=== PATIENT | male | born 1975 | race Caucasian/White ===

== ENCOUNTER 2021-04-19 14:42 | Outpatient (CLI) | payer OTHER ==
--- NOTE | 2021-04-19 15:33 | SLEEP CARE CONSULTATION ---
Information from patient questionnaire entered by Judy Roberts. I have reviewed and concur with the information entered by Judy Roberts. This document represents the service I personally performed and the decisions made by me, Brittany Santillan ARNP. History of Present Illness Service Date and Time: 04/19/2021 1442 Reason for Visit: New patient, [facility] (last seen 2011) Chief Complaint: reports: Snoring Date of Onset: February 2021 Usual bedtime: 9:30 - 10 pm Time it takes to fall asleep: not sure Snores at night: Yes Observed to quit breathing while asleep: No Sleeps alone due to snoring: Yes Number of times waking at night: 0 Reasons for waking at night: reports: Other (acid reflux, rarely). denies: Choking, Snoring, Gasping for air Toss, Turn, or Twitch while sleeping: No Recalls having dreams: No Usually gets out of bed at: 4:50 am; weekends 0600 Feels refreshed in the morning: Yes Morning headache: No Sleepy or fatigued during the day: No Ever fallen asleep while driving: No Takes day naps: No Dreams during day naps: No Prior sleep studies: Yes (negative - 0.8) Year and Where: 2012 - [facility] Sleep Type of Sleep Study: Polysomnography Additional HPI information: I had the pleasure of seeing ALVARADO MONTAÑO today regarding the possibility of him having a sleep disorder. He had previous study in 2012. His current complaint is snoring loudly. He was sleeping in his recliner for a long time due to 's health issues. When he returned to lay in the bed to sleep since February, his snoring has gotten worse and is waking up his and others in the home can hear him as well. He has gained 5-10 pounds in the last few months. The patient thinks he is about 20 pounds heavier than at first sleep study in 2012. He states they did put him on a CPAP machine but he only used it for about 2 weeks. He could not tolerate the pressure because it was set so high it was blowing the mask off his face. The patient states he did not snore for a long time and he returns today to see if his apnea has gotten worse. 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 Patient is and lives in [place]. Have you smoked in the past 12 months: No Cigarettes per day (20/pack): 3 (1 pack weekly) Years of smokin Quit date: 1999 Smoking Pack Years: 0.6 Alcohol use: Yes Alcohol amount and frequency: 1-2 drink weekly Caffeine use: Yes Caffeine amount and frequency: daily, usually travel cup in morning and small cup in the evening Family History Family history of sleep disordered breathing: Yes Family Hx Sleep Apnea: Father: Snoring, Sleep apnea - Treated, Grandparent: Snoring, Sleep apnea - Treated Allergies and Home Medications Drug allergies reviewed: Yes (Percocet (side effect - aggressiveness)) Home medication list reviewed: Yes Allergy and home medication list: Flonase, adding tonight Loratidine Cetrizine Review of Systems Cardiovascular: denies: high blood pressure Gastrointestinal: denies: heartburn Neurological: denies: headaches Psychiatric: denies: anxiety, depression Ear/Nose/Throat: reports: nasal congestion. denies: tonsillectomy Endocrine: denies: thyroid disease Immunologic: reports: allergies to food or environment (pollen) Physical Exam Blood Pressure: 130/92 Cuff size: long Heart Rate: 92 O2 Saturation: 98 Height: 5 ft 8 in Weight: 211 lb 12.8 oz Body Mass Index: 32.2 BMI Classification: Obese Neck circumference: 17 (inches) Soft palate: long Hard palate: arched Uvula visualization: 25% Mallampati Class III Tongue: enlarged in size with teeth claire on lateral edges Tonsils: 1+ Neck: normal w/o lymphadenopathy or thyromegaly Heart: regular rate and rhythm Lungs: clear bilaterally Impression and Plan 1. Suspected Obstructive Sleep Apnea-Hypopnea Syndrome, as suggested by a history of loud and irregular snoring that has becomes worse in the recent months. I recommend proceeding to polysomnography to confirm the diagnosis and to assess severity. I reviewed with the patient what the sleep studies involve and after some discussion, obtained agreement to proceed. The pathophysiology of obstructive sleep apnea-hypopnea syndrome was discussed with the patient and health risks of cardiovascular and cerebrovascular disease if not treated. Risks of drowsy driving discussed in detail and patient advised to avoid long distance driving and to bleach boiler puller at the first sign of drowsiness. Patient agreed to plan. * Schedule polysomnography +- manual CPAP titration study and return in 1-2 weeks after the study to discuss result and initiate therapy. * Avoid long distance driving or driving when feeling sleepy. * Avoid alcohol, sedative and muscle relaxant around bedtime. * Attempt to lose weight. * Review instructions provided by trained office staff on how to prepare for the sleep study. * Return for follow-up after sleep study completed. Counseling Topics: Weight loss health impact Visit Type: In Office Time Spent with Patient (minutes): 30 Provider Statement: I spent 100% of the Face to Face Visit with the patient with greater than 50% spent counseling the patient and coordination of care.
[2021-04-19 15:34] VITALS: BP 130/92
== END 2021-04-19 14:43 | disposition home or self-care (01) ==
LOC: SC 14:42
PROVIDERS: ATTEND Nurse Practitioner Family
DX: R06.83 Snoring (principal); E66.9 Obesity, unspecified; Z68.32 Body mass index [BMI] 32.0-32.9, adult
CPT/HCPCS: 99203; 99212

== ENCOUNTER 2021-04-26 14:53 | Outpatient (CLI) | payer OTHER | END 2021-04-26 14:54 | disposition home or self-care (01) | LOC: SC 14:53 | PROVIDERS: ATTEND Nurse Practitioner Family | DX: G47.33 Obstructive sleep apnea (adult) (pediatric) (principal); E66.9 Obesity, unspecified; Z68.32 Body mass index [BMI] 32.0-32.9, adult | CPT/HCPCS: 95806 ==

== ENCOUNTER 2021-05-24 14:38 | Outpatient (CLI) | payer OTHER ==
--- NOTE | 2021-05-24 15:04 | SLEEP CARE CONSULTATION ---
Information from patient questionnaire entered by Judy Roberts. I have reviewed and concur with the information entered by Judy Roberts. This document represents the service I personally performed and the decisions made by , Brittany Santillan ARNP. History of Present Illness Service Date and Time: 05/24/2021 1438 Initial [place] Sleepiness Scale score: 5 (in 2012) Current [place] Sleepiness Scale score: 0 Additional HPI information: ALVARADO MONTAÑO returns for follow up and results of the recently performed HST. I explained the pathophysiology behind obstructive sleep apnea. We then spent quite a bit of time discussing different treatment options. For mild obstructive sleep apnea, surgery and oral appliance are alternatives to nasal CPAP therapy but in moderate or severe cases, nasal CPAP is the most effective and reliable treatment. Because apnea is primarily in supine position, then positional management therapy could be effective. Methods discussed such as positioning with pillows, using a T-shirt with tennis balls in the back, and shown commercial products that have a pillow format on back to prevent supine sleep. I reviewed the impact of weight changes on sleep apnea and strongly recommended losing weight. Patient was cautioned about risks of drowsy driving until sleepiness symptoms resolve. Sleep Study - Results Type of Sleep Study: Home sleep study Prior sleep studies: Yes Year and Where: 2011(PSG- negative 0.8) - [facility] Sleep Polysomnography/Home Sleep Study results: Physician Impression: The quality of the study is good. The length of the study is adequate (> 240 minutes). Please also see the tabulated and graphic data. 1. Obstructive Sleep Apnea-Hypopnea (ICD-10 G47.33), mild, with an AHI of 6.8/hr and marlena SaO2 of 87%. During the study, the patient had 29 apneas (29 obstructive, 0 central, 0 mixed) and 19 hypopneas. The longest episode lasted 51.0 seconds. The respiratory events occurred almost exclusively during supine sleep (supine AHI was 13.9 and non-supine, 1.04). 2. Hypoxemia (ICD-10 R09.02), mild, with the lowest oxygen saturation of 87 % and 0.2 minutes with SaO2 under 90%. Baseline oxygen saturation was normal (Average oxygen saturation was 93%). Allergies and Home Medications Home medication list reviewed: Yes (no new meds) Review of Systems Review of systems same as previous: Yes (no changes) Physical Exam Heart Rate: 87 O2 Saturation: 98 Height: 5 ft 8 in Weight: 215 lb (with steel toe boots on) Body Mass Index: 32.6 BMI Classification: Obese Impression and Plan 1. Obstructive Sleep Apnea-Hypopnea Syndrome, mild, with lowest oxygen saturation of 87%. Obviously this is the cause of the patients symptoms of unrefreshed sleep, and excessive daytime sleepiness. Positive pressure therapy could benefit his overall health and reduce risks of cardiovascular and cerebrovascular adverse events. Since patients apnea is primarily in supine position, patient advised to try positional therapy and agreed with plan. He is also advised to lose weight as this will reduce snoring and apnea. The patient chose to look into an oral appliance to treat their apnea. A 3 month follow up will be made to see if appliance has reduced symptoms. If so, another polysomnography will be ordered with use of the oral appliance to check efficacy in reducing apnea. Until patient is able to use the oral appliance, positional therapy is advised to avoid supine sleep with pillow positioning or one of the commercial products because apnea is more severe supine. * Oral mandibular appliance therapy * Positional therapy while checking into oral appliance * Attempt to lose weight. * Avoid alcohol consumption near bedtime. * Avoid supine sleep * The patient is again cautioned about driving until sleepiness completely resolves. * Return in about 3 months after using oral device one month. I will assess response to therapy and compliance at that time. Counseling Topics: Weight loss health impact Visit Type: In Office Time Spent with Patient (minutes): 21 Provider Statement: I spent 100% of the Face to Face Visit with the patient with greater than 50% spent counseling the patient and coordination of care.
== END 2021-05-24 14:39 | disposition home or self-care (01) ==
LOC: SC 14:38
PROVIDERS: ATTEND Nurse Practitioner Family
DX: G47.33 Obstructive sleep apnea (adult) (pediatric) (principal); E66.9 Obesity, unspecified; Z68.32 Body mass index [BMI] 32.0-32.9, adult
CPT/HCPCS: 99212; 99213

== ENCOUNTER 2022-03-06 15:09 | Outpatient (CLI) | payer OTHER | END 2022-03-06 15:10 | disposition home or self-care (01) | LOC: SC 15:09 | PROVIDERS: ATTEND Nurse Practitioner Family | DX: R09.02 Hypoxemia (principal); R06.83 Snoring; E66.9 Obesity, unspecified; Z68.32 Body mass index [BMI] 32.0-32.9, adult | CPT/HCPCS: 95806 ==

== ENCOUNTER 2022-03-26 16:21 | Outpatient (CLI) | payer OTHER ==
--- NOTE | 2022-03-26 16:52 | SLEEP CARE CONSULTATION ---
Information from patient questionnaire entered by Renetat Nuñez. I have reviewed and concur with the information entered by Renetta Nuñez. This document represents the service I personally performed and the decisions made by , Brittany Santillan ARNP. History of Present Illness Service Date and Time: 03/26/2022 1621 Initial [place] Sleepiness Scale score: 5 (in 2012) Current [place] Sleepiness Scale score: 2 Additional HPI information: ALVARADO MONTAÑO returns for follow up and results of the recently performed home sleep study. Patient was wearing his oral appliance the night of the study to check efficacy of his appliance. The patient was informed of the following findings: no significant sleep disordered breathing with an average AHI of 4.4 and marlena oxygen saturation of 88%. His supine AHI (5.1) was minimally elevated. Patient is getting good results with his oral appliance with his average less than 5. He will need to follow up with the dentist for a further adjustment. Patient counseled not drink alcohol less than 4 hours before bedtime as it can increase snoring and apnea. Patient was cautioned about risks of drowsy driving until sleepiness symptoms resolve. Patient denies drowsy driving. Sleep Study - Results Type of Sleep Study: Home sleep study (FOLLOW UP HST 03/06/2022) Prior sleep studies: Yes Year and Where: 2011(PSG- negative 0.8) - [facility] Sleep Polysomnography/Home Sleep Study results: Physician Impression: The quality of the study is good. The length of the study is adequate (> 240 minutes). Please also see the tabulated and graphic data. 1. No significant sleep disordered breathing, with an AHI of 4.4/hr and marlena SaO2 of 88%. During the study, the patient had 10 apneas (9 obstructive, 1 central, 0 mixed) and 23 hypopneas. The longest episode lasted 78.5 seconds. The few respiratory events occurred more frequently during supine sleep (supine AHI was 5.1 and non-supine, 3.35). 2. Hypoxemia (ICD-10 R09.02), minimal, with the lowest oxygen saturation of 88 % and 0.2 minutes with SaO2 under 90%. Baseline oxygen saturation was normal (Average oxygen saturation was 93%). Allergies and Home Medications Home medication list reviewed: Yes (no changes) Allergy and home medication list: Allergies acetaminophen [From Percocet] Allergy (Verified 02/17/15 18:57) Anxiety oxycodone HCl * [From Percocet] Allergy (Verified 02/17/15 18:57) Anxiety Review of Systems Review of systems same as previous: Yes (no changes) Physical Exam Vital signs obtained and entered by: Marcos NUÑEZ MA Blood Pressure: 144/90 (manal ) Heart Rate: 93 O2 Saturation: 98 Height: 5 ft 8 in Weight: 215 lb Body Mass Index: 32.6 BMI Classification: Obese Impression and Plan 1. Obstructive Sleep Apnea-Hypopnea Syndrome, mild with an AHI of 6.8. He returns for results of HST with oral appliance in place. Using oral appliance therapy, the patient had less apnea events during his sleep study. His supine AHI was minimally elevated at 5.1 and he was advised to follow up with his dentist for an adjustment of his device. I will then see him in 3 months for a follow up to see how he is doing. He does state that he is feeling more rested and having less daytime sleepiness with using the oral device. Patient's apnea severity and rationale for treatment to reduce apnea, improve sleep quality and reduce cardiovascular and cerebrovascular events was reviewed. 2. Obesity, unspecified. Currently patients BMI is 32,6. Obesity increases the risk of apnea, CPAP pressure requirements and overall health risks especially cardiovascular and diabetes. Thus patient is advised to lose weight. Weight loss can be done with reducing portion size, reducing refined foods and balancing content with vegetables, fruit and whole grain foods. In addition, patient encouraged to get regular exercise. -Continue oral appliance therapy -Attempt to lose weight -Call this office if any problems -Return for follow up in 3 months, or sooner if concerns arise Counseling Topics: Weight loss health impact Visit Type: In Office Time Spent with Patient (minutes): 10 Provider Statement: I spent 100% of the Face to Face Visit with the patient with greater than 50% spent counseling the patient and coordination of care.
[2022-03-26 16:53] VITALS: BP 144/90
== END 2022-03-26 16:22 | disposition home or self-care (01) ==
LOC: SC 16:21
PROVIDERS: ATTEND Nurse Practitioner Family
DX: G47.33 Obstructive sleep apnea (adult) (pediatric) (principal); E66.9 Obesity, unspecified; Z68.32 Body mass index [BMI] 32.0-32.9, adult
CPT/HCPCS: 99212

== ENCOUNTER 2022-06-25 16:00 | Outpatient (CLI) | payer OTHER ==
[2022-06-25 16:32] VITALS: BP 121/78
--- NOTE | 2022-06-25 16:32 | SLEEP CARE CONSULTATION ---
Information from patient questionnaire entered by Kirstie Vazquez MA. I have reviewed and concur with the information entered by Kirstie Vazquez MA. This document represents the service I personally performed and the decisions made by , Brittany Santillan ARNP. History of Present Illness Service Date and Time: 06/25/2022 1600 Previous diagnosis: Mild, Obstructive Sleep Apnea-Hypopnea Syndrome AHI: 6.8 (in 2020) Reason for follow up: three month (F/U ORAL APPLIANCE THERAPY, ) Equipment type: Dental Appliance Prior sleep studies: Yes Year and Where: 2011(PSG- negative 0.8) - [facility] Type of Sleep Study: Home sleep study HPI additional information: Tien Rod was diagnosed to have mild, AHI 6.8, obstructive sleep apnea- hypopnea syndrome and returned today for Oral appliance therapy three month follow-up. Sleep Study - Results Type of Sleep Study: Home sleep study Prior sleep studies: Yes Year and Where: 2011(PSG- negative 0.8) - [facility] CPAP Compliance Data Compliance data discussion: He states he remembers to wear his oral appliance. His will remind him if he forgets. He denies any issues with using his device. Subjective Observed to snore while using device: No On therapy, patient: reports: sleeping better, awakening more refreshed, being more awake and alert during the day, more rested overall. denies: drowsiness while driving Initial [place] Sleepiness Scale score: 5 (in 2011) Current [place] Sleepiness Scale score: 1 (06/25/2022) Allergies and Home Medications Known drug allergies: No Drug allergies reviewed: Yes Home medication list reviewed: Yes (see list) Allergy and home medication list: Allergies acetaminophen [From Percocet] Allergy (Verified 02/17/15 18:57) Anxiety oxycodone HCl * [From Percocet] Allergy (Verified 02/17/15 18:57) Anxiety Medications: Stopped Lisinopril Started on - Micardis/HCTZ 40mg \ 12.5mg qd. Review of Systems Review of systems same as previous: Yes (no changes) Physical Exam Vital signs obtained and entered by: SCOTTY QUIÑONES Blood Pressure: 121/78 (PULSE 70, RESP 18, RIGHT) Cuff size: wrist Heart Rate: 72 O2 Saturation: 98 (PAPER MASK) Height: 5 ft 8 in Weight: 216 lb (CLOTHES) Body Mass Index: 32.8 BMI Classification: Obese Impression and Plan 1. Obstructive Sleep Apnea-Hypopnea Syndrome, mild. Using oral appliance therapy, the patient has better sleep quality and is more rested overall. Patient states he is able to wear it every night and if he forgets his will remind him to put in his oral appliance. He has no muscle or teeth soreness wit h using his oral device. He did have it adjusted by his dentist.He is happy with current therapy and appears to be having good improvement of his sleep and restfulness overall. Patient's apnea severity and rationale for treatment to reduce apnea, improve sleep quality and reduce cardiovascular and cerebrovascular events was reviewed. 2. Obesity, unspecified. Currently patients BMI is 32.8. Obesity increases the risk of apnea, CPAP pressure requirements and overall health risks especially cardiovascular and diabetes. Thus patient is advised to lose weight. Weight loss can be done with reducing portion size, reducing refined foods and balancing content with vegetables, fruit and whole grain foods. In addition, patient encouraged to get regular exercise. -Continue oral appliance therapy -Attempt to lose weight -Call this office if any problems -Return for follow up in 1 year, or sooner if concerns arise Counseling Topics: Weight loss health impact Visit Type: In Office Time Spent with Patient (minutes): 11 Provider Statement: I spent 100% of the Face to Face Visit with the patient with greater than 50% spent counseling the patient and coordination of care.
== END 2022-06-25 16:01 | disposition home or self-care (01) ==
LOC: SC 16:00
PROVIDERS: ATTEND Nurse Practitioner Family
DX: G47.33 Obstructive sleep apnea (adult) (pediatric) (principal); E66.9 Obesity, unspecified; Z68.32 Body mass index [BMI] 32.0-32.9, adult
CPT/HCPCS: 99212

== ENCOUNTER 2022-10-29 16:54 | Emergency (ER) | payer OTHER ==
--- NOTE | 2022-10-29 18:17 | XRAY Report ---
PROCEDURE: Chest 1 View X-Ray INDICATIONS: Cough/SOA TECHNIQUE: One view of the chest was acquired. COMPARISON: None. FINDINGS: Surgical changes and devices: None. Lungs and pleura: No pleural effusions or pneumothorax. No consolidation identified. Mediastinum: Mediastinal contours appear normal. Heart size is normal. Bones and chest wall: No suspicious bony lesions. Overlying soft tissues appear unremarkable. IMPRESSION: No acute cardiopulmonary abnormality. Reviewed by: Reji Chaney MD on 10/29/2022 6:[address] [facility] Approved by: Reji Chaney MD on 10/29/2022 6:[address] Station ID: [id number]
[2022-10-29 18:20] LABS: B. PARAPERTUSSIS- RESP PCR PAN NOT DETECTED; B. PERTUSSIS- RESP PCR PANEL NOT DETECTED; C. PNEUMONIAE- RESP PCR PANEL NOT DETECTED; CORONAVIRUS 229E-RESP PCR NOT DETECTED; CORONAVIRUS HKU1-RESP PCR NOT DETECTED; CORONAVIRUS NL63-RESP PCR NOT DETECTED; CORONAVIRUS OC43-RESP PCR NOT DETECTED; HUMAN METAPNEUMOVIRUS NOT DETECTED; INFLUENZA A H3- RESP PCR PANEL DETECTED; INFLUENZA B - RESP PCR PANEL NOT DETECTED; M. PNEUMONIAE- RESP PCR PANEL NOT DETECTED; PARAINFLUENZA VIRUS 1 NOT DETECTED; PARAINFLUENZA VIRUS 2 NOT DETECTED; PARAINFLUENZA VIRUS 3 NOT DETECTED; PARAINFLUENZA VIRUS 4 NOT DETECTED; RHINOVIRUS/ENTEROVIRUS NOT DETECTED; RSV- RESP PCR PANEL NOT DETECTED; SARS-CoV-2 -RESP PCR PANEL NOT DETECTED
[2022-10-29] MEDS ORDERED: IPRATROPIUM/ALBUTEROL 3 ML NEB INH STA (19:46)
[2022-10-29] MEDS ORDERED: BENZONATATE 100 MG CAPSULE PO STA (19:50)
--- NOTE | 2022-10-29 19:51 | ED Physician Documentation ---
History of Present Illness - Stated complaint Stated Complaint: SOA/ACHES - Chief complaint Chief Complaint: Resp - History obtained from History obtained from: Patient - History of Present Illness Timing: How many days ago (2) Pain level max: 5 Pain level now: 3 - Additonal information Additional information: Patient is a 47-year-old male who presents to the emergency department with fever, congestion, body aches for the past 36 hours. Better with Motrin and Tylenol, he states that he has used inhalers in the past, and feels short of breath and like he is wheezing. The cough is mostly dry. No vomiting. No diarrhea. Review of Systems Constitutional: reports: Fever, Chills Nose: reports: Rhinorrhea / runny nose, Congestion Respiratory: reports: Cough, Wheezing GI: denies: Vomiting Skin: denies: Rash Musculoskeletal: denies: Neck pain, Back pain Neurologic: denies: Headache PD PAST MEDICAL HISTORY - Past Medical History Past Medical History: No - Past Surgical History Past Surgical History: No - Present Medications Home Medications: Ambulatory Orders Medication Instructions Recorded Confirmed Amoxicillin 500 mg PO TID #21 tablet 02/17/15 Fluticasone [Flonase] 2 sprays MODE DAILY #1 bottle 02/17/15 Albuterol Sulf [Ventolin Hfa 1 - 2 puffs INH Q4HR PRN #1 each 10/29/22 Inhaler] Baloxavir Marboxil [Xofluza] 80 mg PO ONCE #1 tablet 10/29/22 Benzonatate [Tessalon] 200 mg PO TID PRN #30 cap 10/29/22 - Allergies Allergies/Adverse Reactions: Allergies Allergy/AdvReac Type Severity Reaction Status Date / Time acetaminophen [From Percocet] Allergy Anxiety Verified 02/17/15 18:57 oxycodone HCl * Allergy Anxiety Verified 10/29/22 17:14 [From Percocet] - Social History Does the pt smoke?: No Smoking Status: Never smoker Does the pt drink ETOH?: Yes Does the pt have substance abuse?: No - Immunizations Immunizations are current?: No - POLST Patient has POLST: No PD ED PE NORMAL - Vitals Vital signs reviewed: Yes - General General: Alert and oriented X 3, No acute distress - HEENT HEENT: PERRL, Moist mucous membranes - Neck Neck: Supple, no meningeal sign - Cardiac Cardiac: RRR, No murmur - Respiratory Respiratory: No respiratory distress, Other (Mild wheeze bilaterally) - Abdomen Abdomen: Soft, Non tender, Non distended - Derm Derm: Warm and dry, No rash - Extremities Extremities: No edema - Neuro Neuro: Alert and oriented X 3 - Psych Psych: Normal mood, Normal affect Results - Vitals Vitals: Oxygen O2 Source Room air - Labs Labs: Laboratory Tests 10/29/22 17:15 Nasal Adenovirus (PCR) NOT DETECTED Nasal B. parapertussis DNA (PCR) NOT DETECTED Nasal Coronavir 229E PCR NOT DETECTED Nasal Coronavir HKU1 PCR NOT DETECTED Nasal Coronavir NL63 PCR NOT DETECTED Nasal Coronavir OC43 PCR NOT DETECTED Nasal Enterovir/Rhinovir PCR NOT DETECTED Nasal Influenza A H3 PCR DETECTED A Nasal Influenza B PCR NOT DETECTED Nasal Parainfluen 1 PCR NOT DETECTED Nasal Parainfluen 2 PCR NOT DETECTED Nasal Parainfluen 3 PCR NOT DETECTED Nasal Parainfluen 4 PCR NOT DETECTED Nasal RSV (PCR) NOT DETECTED Nasal B.pertussis DNA PCR NOT DETECTED Nasal C.pneumoniae (PCR) NOT DETECTED Mode Human Metapneumo PCR NOT DETECTED Nasal M.pneumoniae (PCR) NOT DETECTED Nasal SARS-CoV-2 (PCR) NOT DETECTED - Rads (name of study) cxr Radiology: Final report received, EMP read contemporaneously, See rad report PD MEDICAL DECISION MAKING - ED course Complexity details: reviewed results, re-evaluated patient, considered differential, d/w patient ED course: Patient is positive for influenza. He is well-appearing, nontoxic. No hypoxia. He received a DuoNeb treatment in the emergency department and feels like he is breathing easier. We will prescribe albuterol for home. We will also prescribe cough medication. As he has been sick less than 48 hours. We discussed antiviral therapy and we will place him on Xofluza as well. Patient counseled regarding signs and symptoms for which I believe and urgent re-evaluation would be necessary. Patient with good understanding of and agreement to plan and is comfortable going home at this time This document was made in part using voice recognition software. While efforts are made to proofread this document, sound alike and grammatical errors may occur. Departure - Departure Disposition: 01 Home, Self Care Clinical Impression: Influenza A Condition: Good Instructions: ED Flu Follow-Up: GABRIEL NIXON ARNP [Primary Care Provider] - Within 1 week Prescriptions: Albuterol Sulf [Ventolin Hfa Inhaler] 1 - 2 puffs INH Q4HR PRN #1 each PRN Reason: Shortness Of Air/Wheezing Benzonatate [Tessalon] 200 mg PO TID PRN #30 cap PRN Reason: Cough Baloxavir Marboxil [Xofluza] 80 mg PO ONCE #1 tablet Comments: You have tested positive for influenza A emiliano. Your prescriptions were sent to [facility] in [place]. Please follow-up with your doctor for further care. Return if you worsen. Your x-ray does not show any evidence of pneumonia today. Discharge Date/Time: 10/29/22 20:12
[2022-10-29 20:13] VITALS: BP 144/90
== END 2022-10-29 20:12 | disposition home or self-care (01) ==
LOC: ED 16:54
DX: J10.1 Influenza due to other identified influenza virus with other respiratory manifestations (principal); Z20.822 Contact with and (suspected) exposure to COVID-19
CPT/HCPCS: 71045; 87633; 94640; 94664; 99284; A9270

== ENCOUNTER 2023-07-09 14:41 | Outpatient (CLI) | payer OTHER ==
--- NOTE | 2023-07-09 15:23 | Sleep Patient Instructions ---
Sleep Center Visit Summary - Patient Visit Information Reason for Visit: Annual Visit for sleep apnea - Patient Instructions Additional Instructions: You were here for follow up of Oral appliance therapy. You will be continued on Oral Appliance therapy. You should follow up with sleep care in 12 months. You may contact us sooner for any questions or concerns. - Clinic Information Contact: [facility] [address] [place] [address] [email or web address] T: [phone]
--- NOTE | 2023-07-09 15:26 | SLEEP CARE CONSULTATION ---
Information from patient questionnaire entered by Lyndsay Villareal. I have reviewed and concur with the information entered by Lyndsay Villareal. This document represents the service I personally performed and the decisions made by , Brittany Santillan ARNP. History of Present Illness Service Date and Time: 07/09/2023 1441 Previous diagnosis: Mild, Obstructive Sleep Apnea-Hypopnea Syndrome AHI: 6.8 (in 2020) Reason for follow up: annual (LAST SEEN 06/2022 ORAL DEVICE F/U) Equipment type: Dental Appliance Prior sleep studies: Yes Year and Where: 2011(PSG- negative 0.8) - [facility] Type of Sleep Study: Home sleep study HPI additional information: ALVARADO MONTAÑO was diagnosed to have mild, AHI 6.8, obstructive sleep apnea- hypopnea syndrome and returned today for Oral appliance therapy annual follow- up. Sleep Study - Results Type of Sleep Study: Home sleep study Prior sleep studies: Yes Year and Where: 2011(PSG- negative 0.8) - [facility] CPAP Compliance Data Compliance data discussion: He is using his oral appliance every night. He denies any issues. Subjective On therapy, patient: reports: sleeping better, being more awake and alert during the day, more rested overall. denies: drowsiness while driving Initial [place] Sleepiness Scale score: 5 (in 2011) Current [place] Sleepiness Scale score: 1 (07/09/23) Allergies and Home Medications Known drug allergies: Yes (as listed) Drug allergies reviewed: Yes Home medication list reviewed: Yes (Aller Clear; Telmisartin-HCTZ) Allergy and home medication list: Allergies acetaminophen [From Percocet] Allergy (Verified 07/08/23 11:44) Anxiety oxycodone HCl * [From Percocet] Allergy (Verified 07/08/23 11:44) Anxiety Review of Systems Review of systems same as previous: Yes (no changes) Physical Exam Vital signs obtained and entered by: LYNDSAY Mchugh MA Blood Pressure: 134/86 (LEFT ARM) Cuff size: regular Heart Rate: 90 O2 Saturation: 99 Height: 5 ft 8 in Weight: 212 lb 12.8 oz Weight change since last visit: 4 lb loss Body Mass Index: 32.3 BMI Classification: Obese Impression and Plan 1. Obstructive Sleep Apnea-Hypopnea Syndrome, mild. Using oral appliance therapy, the patient has better sleep quality and is more rested overall. He states he has no jaw or face soreness with using his oral appliance. He is able to use it every night. He is comfortable with using the oral appliance and feels a difference when he is able to use it. Patient's apnea severity and rationale for treatment to reduce apnea, improve sleep quality and reduce cardiovascular and cerebrovascular events was reviewed. 2. Obesity, unspecified. Currently patients BMI is 32.3.He is trying to eat better and has given up on sodas for a while. In the last month he has lost about 4 pounds. Obesity increases the risk of apnea, CPAP pressure requirements and overall health risks especially cardiovascular and diabetes. Thus patient is advised to continue to try to lose weight. -Continue oral appliance therapy -Attempt to lose weight -Call this office if any problems -Return for follow up in 1 year, or sooner if concerns arise Counseling Topics: Weight loss health impact Visit Type: In Office Time Spent with Patient (minutes): 12 Provider Statement: I spent 100% of the Face to Face Visit with the patient with greater than 50% spent counseling the patient and coordination of care.
[2023-07-09 15:27] VITALS: BP 134/86; O2SAT 99
== END 2023-07-09 14:42 | disposition home or self-care (01) ==
LOC: SC 14:41
PROVIDERS: ATTEND Nurse Practitioner Family
DX: G47.33 Obstructive sleep apnea (adult) (pediatric) (principal); E66.9 Obesity, unspecified; Z68.32 Body mass index [BMI] 32.0-32.9, adult
CPT/HCPCS: 99212

== ENCOUNTER 2023-11-28 07:45 | Outpatient (CLI) | payer OTHER ==
--- NOTE | 2023-11-28 11:38 | XRAY Report ---
PROCEDURE: Chest 2V INDICATIONS: ACUTE UPPER RESPIRATORY INFECTION TECHNIQUE: 2 views of the chest were acquired. COMPARISON: Chest x-ray 11/29/2021 FINDINGS: Surgical changes and devices: None. Lungs and pleura: No pleural effusions or pneumothorax. Lungs are clear. Mediastinum: Mediastinal contours appear normal. Heart size is normal. Bones and chest wall: No suspicious bony lesions. Overlying soft tissues appear unremarkable. IMPRESSION: No acute cardiopulmonary process. Reviewed by: Mirian Miguel MD on 11/28/2023 11:36 AM [facility] Approved by: Mirian Miguel MD on 11/28/2023 11:36 AM [facility] Station ID: [id number]
== END 2023-11-28 08:00 | disposition home or self-care (01) ==
LOC: DI.N 07:45
PROVIDERS: ATTEND Nurse Practitioner
DX: J06.9 Acute upper respiratory infection, unspecified (principal)

== ENCOUNTER 2024-07-14 13:02 | Outpatient (CLI) | payer OTHER ==
--- NOTE | 2024-07-14 13:23 | Sleep Patient Instructions ---
Sleep Center Visit Summary - Patient Visit Information Reason for Visit: Annual follow-up for oral appliance - Patient Instructions Additional Instructions: You will continue with oral appliance therapy. We encourage you to continue to try to lose weight. Please follow up with the sleep care office in 1 year. - Clinic Information Contact: [facility] [address] [place] [id number] [email or web address] T: [phone]
[2024-07-14 13:26] VITALS: BP 153/98; O2SAT 99
--- NOTE | 2024-07-14 13:26 | SLEEP CARE CONSULTATION ---
Information from patient questionnaire entered by Lyndsay Villareal. I have reviewed and concur with the information entered by Lyndsay Villareal. This document represents the service I personally performed and the decisions made by me, Brittany Santillan ARNP. History of Present Illness Service Date and Time: 07/14/2024 1302 Previous diagnosis: Mild, Obstructive Sleep Apnea-Hypopnea Syndrome AHI: 6.8 (in 2020) Reason for follow up: annual (LAST SEEN 06/2023 ORAL APPLIANCE F/U) Equipment type: Dental Appliance Prior sleep studies: Yes Year and Where: 2011(PSG- negative 0.8) - [facility] Type of Sleep Study: Home sleep study HPI additional information: ALVARADO MONTAÑO was diagnosed to have mild, AHI 6.8, obstructive sleep apnea- hypopnea syndrome and returned today for oral appliance therapy annual follow- up. Sleep Study - Results Type of Sleep Study: Home sleep study Prior sleep studies: Yes Year and Where: 2011(PSG- negative 0.8) - [facility] CPAP Compliance Data Compliance data discussion: He is using oral appliance every night. He states no issues with using his appliance. He has had this appliance for 2 years. Subjective On therapy, patient: reports: sleeping better, awakening more refreshed, being more awake and alert during the day, more rested overall. denies: drowsiness while driving Initial [place] Sleepiness Scale score: 5 (in 2011) Current [place] Sleepiness Scale score: 2 (07/14/24) Allergies and Home Medications Known drug allergies: Yes (as listed) Drug allergies reviewed: Yes Home medication list reviewed: Yes (no changes) Allergy and home medication list: Allergies acetaminophen [From Percocet] Allergy (Verified 07/14/24 13:15) Anxiety oxycodone HCl * [From Percocet] Allergy (Verified 07/14/24 13:15) Anxiety Review of Systems Review of systems same as previous: Yes (no changes) Physical Exam Vital signs obtained and entered by: LYNDSAY Mchugh MA Blood Pressure: 153/98 (RIGHT ARM) Cuff size: long Heart Rate: 70 O2 Saturation: 99 Height: 5 ft 8 in Weight: 217 lb 3.2 oz (wearing work boots) Weight change since last visit: 5 lb gain Body Mass Index: 33.0 BMI Classification: Obese Impression and Plan 1. Obstructive Sleep Apnea-Hypopnea Syndrome, mild. Using oral appliance therapy, the patient has better sleep quality and is more rested overall. He has had no issues when using his oral appliance. He did have a follow up with the dentist last year. He had needed no adjustments. He is comfortable with using his oral device. Patient's apnea severity and rationale for treatment to reduce apnea, improve sleep quality and reduce cardiovascular and cerebrovascular events was reviewed. 2. Obesity, unspecified. Currently patients BMI is 33. Obesity increases the risk of apnea, CPAP pressure requirements and overall health risks especially cardiovascular and diabetes. Thus patient is advised to lose weight. * Continue with the oral appliance * Attempt to lose weight * Call this office if any problems * Return for follow up in 12 months, or sooner if concerns arise Counseling Topics: Weight loss health impact Follow up with Sleep Care in: 1 year Visit Type: In Office Time Spent with Patient (minutes): 11 Provider Statement: I spent 100% of the Face to Face Visit with the patient with greater than 50% spent counseling the patient and coordination of care.
== END 2024-07-14 13:03 | disposition home or self-care (01) ==
LOC: SC 13:02
PROVIDERS: ATTEND Nurse Practitioner Family
DX: G47.33 Obstructive sleep apnea (adult) (pediatric) (principal); E66.9 Obesity, unspecified; Z68.33 Body mass index [BMI] 33.0-33.9, adult
CPT/HCPCS: 99212